=== PATIENT | male | born 1965 | race African-American/Black ===

== ENCOUNTER 2019-09-27 17:05 | Emergency (ER) | payer MEDICAID ==
[~2019-09-27] VITALS: Ht 182.9 cm; Wt 136.1 kg
[2019-09-27 17:19] VITALS: BP 144/92
[2019-09-27] MEDS ORDERED: IBUPROFEN 800 MG TAB PO ONE (19:00)
== END 2019-09-27 20:05 | disposition home or self-care (01) ==
LOC: ER 17:05
DX: N45.1 Epididymitis (principal); N39.0 Urinary tract infection, site not specified; R31.9 Hematuria, unspecified
CPT/HCPCS: 76870; 81002

== ENCOUNTER 2019-09-28 22:46 | Emergency (ER) | payer MEDICAID ==
[~2019-09-28] VITALS: Ht 182.9 cm; Wt 136.1 kg
[2019-09-28 22:57] VITALS: BP 152/84
== END 2019-09-29 00:09 | disposition home or self-care (01) ==
LOC: ER 22:50
DX: N45.1 Epididymitis (principal); Z91.14 Patient's other noncompliance with medication regimen; Z76.0 Encounter for issue of repeat prescription

== ENCOUNTER 2020-01-14 08:42 | Emergency (ER) | payer MEDICAID ==
[~2020-01-14] VITALS: Ht 182.9 cm; Wt 145.1 kg
[2020-01-14 09:29] VITALS: BP 148/94
[2020-01-14] MEDS ORDERED: cefTRIAXone SOD 1,000 MG VL IM ONE (09:45)
[2020-01-14] MEDS ORDERED: IBUPROFEN 800 MG TAB PO ONE (09:45)
[2020-01-14] MEDS ORDERED: LIDOCAINE 1% HCL (LOCAL ANESTH.) INJ 20ML MDV ONE (09:49)
== END 2020-01-14 10:30 | disposition home or self-care (01) ==
LOC: ER 08:42
DX: K04.7 Periapical abscess without sinus (principal)
CPT/HCPCS: 96372; 99283; J0696; J2001

== ENCOUNTER 2021-02-26 14:51 | Inpatient (IN) | payer MEDICAID ==
[~2021-02-26] VITALS: Ht 182.9 cm; Wt 166.9 kg
[2021-02-26] MEDS ORDERED: SODIUM CHLORIDE 0.9% 1,000 ML IV ONE (15:45)
[2021-02-26 16:22] LABS: Basophils # (auto) 0 10 ^3/uL (0-0.2); Eosinophils # (auto) 0 10 ^3/uL (0-0.8); Hematocrit 49.7 % (41.0-53.0); Hemoglobin 16.4 g/dL (13.5-17.5); Lymphocytes # (auto) 1.3 10 ^3/uL (0.4-5.4); Lymphocytes % (auto) 31.2 % (10.0-50.0); Mean Corpuscular Hemoglobin 29.5 pg (28.0-32.0); Mean Corpuscular Hgb Conc. 32.9 g/dL (32.0-36.0); Mean Corpuscular Volume 89.6 fL (80.0-100.0); Monocytes # (auto) 0.2 10 ^3/uL (0-1.3); Monocytes % (auto) 5.5 % (0.0-12.0); Neutrophils # (auto) 2.7 10 ^3/uL (1.6-8.6); Neutrophils % (auto) 62.3 % (37.0-80.0); Nucleated Red Blood Cells % 0.2 %; Red Blood Cells 5.55 10^6/uL (4.5-5.90); Red Cell Distribution Width 15.4 % (11.8-14.3); White Blood Cell 4.3 10^3/uL (4.4-10.8)
[2021-02-26 16:37] LABS: Alanine Aminotransferase 60 U/L (16-61); Albumin 2.9 g/dL (3.4-5.0); Anion Gap 7 (5-15); Aspartate Aminotransferase 55 U/L (15-37); BUN/Creatinine Ratio 11.4; Blood Urea Nitrogen 18 mg/dL (7-18); Calcium 8.2 mg/dL (8.5-10.1); Carbon Dioxide 26 mmol/L (21-32); Chloride 104 mmol/L (98-107); GFR African American 59 mL/min; GFR Non-African American 49 mL/min; Glucose 90 mg/dL (74-106); Magnesium 2.1 mg/dL (1.6-2.6); Potassium 4.4 mmol/L (3.5-5.1); Sodium 137 mmol/L (136-145)
[2021-02-26 16:42] LABS: Alkaline Phosphatase 47 U/L (45-117); Bilirubin, Total 0.4 mg/dL (0.2-1.0); Total Protein 7.8 g/dL (6.4-8.2)
[2021-02-26 17:10] LABS: Urine Bacteria NONE SEEN /hpf (None Seen); Urine Blood Negative /uL (Negative); Urine Specific Gravity 1.029 (1.001-1.035); Urine WBC 1 /hpf (0 - 3)
[2021-02-26 18:12] LABS: INR 1.04 (0.9-1.15); Partial Thromboplastin Time 32.5 sec (23.6-33.0)
[2021-02-26] MEDS ORDERED: ACETAMINOPHEN 500 MG TAB PO ONE (23:15)
[2021-02-27] MEDS ORDERED: AZITHROMYCIN 500MG/ 250ML 250 ML IV ONE (01:00)
[2021-02-27] MEDS ORDERED: DexAMETHasone SOD PHOS 10MG/1ML VIAL INJ IV ONE (01:00)
[2021-02-27] MEDS ORDERED: ONDANSETRON HCL 4 MG/2 ML VIAL IV PRN (02:30)
[2021-02-27] MEDS ORDERED: ALBUTEROL SULF 2.5 MG/0.5ML(0.5%) NEB SOLN NEB PRN (02:30)
[2021-02-27] MEDS ORDERED: ACETAMINOPHEN 325 MG TAB PO PRN (02:30)
[2021-02-27] MEDS ORDERED: TEMAZEPAM 15 MG CAP PO PRN (02:30)
[2021-02-27] MEDS: cefTRIAXone 1GM/50ML D5W 50 ML IV SCH (09:18)
[2021-02-27] MEDS: DexAMETHasone SOD PHOS 10MG/1ML VIAL INJ IV SCH (10:06)
[2021-02-27] MEDS: AZITHROMYCIN 500MG/ 250ML 250 ML IV SCH (10:06)
[2021-02-27] MEDS: PANTOPRAZOLE 40 MG TAB PO SCH (10:07)
[2021-02-27] MEDS: ENOXAPARIN SOD 40 MG/0.4 ML SYRINGE SC SCH (10:07)
[2021-02-27 11:11] VITALS: BP 111/70
[2021-02-27] MEDS ORDERED: REMDESIVIR PER PHARMACY 0 ML IV SCH ×2 (13:15)
[2021-02-27] MEDS: SODIUM CHLORIDE 0.9% 1,000 ML IV SCH ×2 (15:15→23:30)
[2021-02-27] MEDS ORDERED: REMDESIVIR 200 MG in NS 210ml LOADING DOSE ADULT IV ONE (15:30)
[2021-02-27 22:00] VITALS: BP 135/87
[2021-02-28] VITALS: BP 135/87
[2021-02-28 05:00] VITALS: BP 148/85
[2021-02-28 06:19] LABS: Basophils # (auto) 0 10 ^3/uL (0-0.2); Basophils % (auto) 0.3 % (0.0-2.0); Eosinophils # (auto) 0 10 ^3/uL (0-0.8); Hematocrit 45.6 % (41.0-53.0); Hemoglobin 15.3 g/dL (13.5-17.5); Lymphocytes # (auto) 0.9 10 ^3/uL (0.4-5.4); Lymphocytes % (auto) 17.1 % (10.0-50.0); Mean Corpuscular Hemoglobin 30.1 pg (28.0-32.0); Mean Corpuscular Hgb Conc. 33.5 g/dL (32.0-36.0); Mean Corpuscular Volume 89.7 fL (80.0-100.0); Monocytes # (auto) 0.4 10 ^3/uL (0-1.3); Monocytes % (auto) 6.9 % (0.0-12.0); Neutrophils # (auto) 3.9 10 ^3/uL (1.6-8.6); Neutrophils % (auto) 75.7 % (37.0-80.0); Nucleated Red Blood Cells % 0.1 %; Red Blood Cells 5.08 10^6/uL (4.5-5.90); Red Cell Distribution Width 15.3 % (11.8-14.3); White Blood Cell 5.1 10^3/uL (4.4-10.8)
[2021-02-28 06:34] LABS: Albumin 2.6 g/dL (3.4-5.0); Potassium 4.4 mmol/L (3.5-5.1)
[2021-02-28 06:40] LABS: BUN/Creatinine Ratio 18.2; Bilirubin, Total 0.4 mg/dL (0.2-1.0); Total Protein 7.2 g/dL (6.4-8.2)
[2021-02-28 09:00] VITALS: BP 112/68
[2021-02-28] MEDS: SODIUM CHLORIDE 0.9% 1,000 ML IV SCH (09:30)
[2021-02-28] MEDS: cefTRIAXone 1GM/50ML D5W 50 ML IV SCH (09:47)
[2021-02-28] MEDS: PANTOPRAZOLE 40 MG TAB PO SCH (09:47)
[2021-02-28] MEDS: ENOXAPARIN SOD 40 MG/0.4 ML SYRINGE SC SCH ×2 (09:47→21:52)
[2021-02-28] MEDS: DexAMETHasone SOD PHOS 10MG/1ML VIAL INJ IV SCH (09:47)
[2021-02-28] MEDS: AZITHROMYCIN 500MG/ 250ML 250 ML IV SCH (12:37)
[2021-02-28 13:00] VITALS: BP 118/73
[2021-02-28] MEDS: REMDESIVIR 100mg 100 MG in SODIUM CHL 0.9% 230 ML IV SCH (15:18)
[2021-02-28 17:01] VITALS: BP 125/74
[2021-02-28 22:00] VITALS: BP 125/78
[2021-03-01 04:55] LABS: Basophils # (auto) 0 10 ^3/uL (0-0.2); Basophils % (auto) 0.9 % (0.0-2.0); Eosinophils # (auto) 0 10 ^3/uL (0-0.8); Hematocrit 44.1 % (41.0-53.0); Hemoglobin 14.9 g/dL (13.5-17.5); Lymphocytes # (auto) 0.9 10 ^3/uL (0.4-5.4); Lymphocytes % (auto) 17.4 % (10.0-50.0); Mean Corpuscular Hemoglobin 30.4 pg (28.0-32.0); Mean Corpuscular Hgb Conc. 33.9 g/dL (32.0-36.0); Mean Corpuscular Volume 89.8 fL (80.0-100.0); Monocytes # (auto) 0.6 10 ^3/uL (0-1.3); Neutrophils # (auto) 3.6 10 ^3/uL (1.6-8.6); Neutrophils % (auto) 69.7 % (37.0-80.0); Red Blood Cells 4.91 10^6/uL (4.5-5.90); White Blood Cell 5.2 10^3/uL (4.4-10.8)
[2021-03-01 05:00] VITALS: BP 140/77
[2021-03-01 05:14] LABS: Albumin 2.6 g/dL (3.4-5.0); BUN/Creatinine Ratio 21.1; Potassium 4.4 mmol/L (3.5-5.1)
[2021-03-01 05:16] LABS: Bilirubin, Total 0.3 mg/dL (0.2-1.0); Total Protein 7.1 g/dL (6.4-8.2)
[2021-03-01 09:00] VITALS: BP 129/77
[2021-03-01] MEDS: AZITHROMYCIN 500MG/ 250ML 250 ML IV SCH (10:00)
[2021-03-01] MEDS: ENOXAPARIN SOD 40 MG/0.4 ML SYRINGE SC SCH ×2 (10:01→21:55)
[2021-03-01] MEDS: DexAMETHasone SOD PHOS 10MG/1ML VIAL INJ IV SCH (10:01)
[2021-03-01] MEDS: PANTOPRAZOLE 40 MG TAB PO SCH (10:01)
[2021-03-01] MEDS: cefTRIAXone 1GM/50ML D5W 50 ML IV SCH (10:01)
[2021-03-01] MEDS ORDERED: ASCORBIC ACID 500 MG TAB PO ONE (12:15)
[2021-03-01] MEDS ORDERED: CHOLECALCIFEROL (VITD3) 2,000 UNIT CAP/TAB PO ONE (12:15)
[2021-03-01] MEDS ORDERED: ZINC SULFATE 220mg CAP or TAB PO ONE (12:15)
[2021-03-01 13:00] VITALS: BP 120/75
[2021-03-01] MEDS: REMDESIVIR 100mg 100 MG in SODIUM CHL 0.9% 230 ML IV SCH (15:50)
[2021-03-01 16:46] VITALS: BP 119/75
[2021-03-01 22:00] VITALS: BP 133/78
[2021-03-02 05:00] VITALS: BP 131/80
[2021-03-02 07:14] LABS: Potassium 4.3 mmol/L (3.5-5.1)
[2021-03-02 07:25] LABS: Albumin 2.7 g/dL (3.4-5.0); BUN/Creatinine Ratio 19.5; Bilirubin, Total 0.4 mg/dL (0.2-1.0); Calcium 8.4 mg/dL (8.5-10.1); Total Protein 7.1 g/dL (6.4-8.2)
[2021-03-02 08:58] VITALS: BP 125/97
[2021-03-02] MEDS: DexAMETHasone SOD PHOS 10MG/1ML VIAL INJ IV SCH (09:05)
[2021-03-02] MEDS: cefTRIAXone 1GM/50ML D5W 50 ML IV SCH (09:05)
[2021-03-02] MEDS: AZITHROMYCIN 500MG/ 250ML 250 ML IV SCH (09:06)
[2021-03-02] MEDS: ZINC SULFATE 220mg CAP or TAB PO SCH (09:06)
[2021-03-02] MEDS: CHOLECALCIFEROL (VITD3) 2,000 UNIT CAP/TAB PO SCH (09:07)
[2021-03-02] MEDS: PANTOPRAZOLE 40 MG TAB PO SCH (09:07)
[2021-03-02] MEDS: ASCORBIC ACID 1,000 MG TAB PO SCH (09:07)
[2021-03-02] MEDS: ENOXAPARIN SOD 40 MG/0.4 ML SYRINGE SC SCH ×2 (09:09→21:31)
[2021-03-02 13:00] VITALS: BP 127/77
[2021-03-02] MEDS: REMDESIVIR 100mg 100 MG in SODIUM CHL 0.9% 230 ML IV SCH (15:08)
[2021-03-02 17:00] VITALS: BP 123/75
[2021-03-02 21:42] VITALS: BP 127/77
[2021-03-03 04:22] VITALS: BP 130/89
[2021-03-03 06:48] LABS: Potassium 4.1 mmol/L (3.5-5.1)
[2021-03-03 06:58] LABS: Albumin 2.7 g/dL (3.4-5.0); BUN/Creatinine Ratio 17.8; Bilirubin, Total 0.4 mg/dL (0.2-1.0); Calcium 8.3 mg/dL (8.5-10.1); Total Protein 7.1 g/dL (6.4-8.2)
[2021-03-03 07:40] VITALS: BP 127/83
[2021-03-03 09:00] VITALS: BP 127/83
[2021-03-03] MEDS: ENOXAPARIN SOD 40 MG/0.4 ML SYRINGE SC SCH (09:10)
[2021-03-03] MEDS: CHOLECALCIFEROL (VITD3) 2,000 UNIT CAP/TAB PO SCH (09:10)
[2021-03-03] MEDS: DexAMETHasone SOD PHOS 10MG/1ML VIAL INJ IV SCH (09:10)
[2021-03-03] MEDS: ZINC SULFATE 220mg CAP or TAB PO SCH (09:11)
[2021-03-03] MEDS: cefTRIAXone 1GM/50ML D5W 50 ML IV SCH (09:11)
[2021-03-03] MEDS: AZITHROMYCIN 500MG/ 250ML 250 ML IV SCH (09:11)
[2021-03-03] MEDS: ASCORBIC ACID 1,000 MG TAB PO SCH (09:11)
[2021-03-03] MEDS: PANTOPRAZOLE 40 MG TAB PO SCH (09:11)
[2021-03-03] MEDS ORDERED: DEXA4TAB90 PO (10:52)
[2021-03-03] MEDS ORDERED: ASCO10003 PO (10:52)
[2021-03-03] MEDS ORDERED: CHOL1CAP47 PO (10:52)
[2021-03-03] MEDS ORDERED: ALB5IS NEB (10:52)
[2021-03-03 11:45] VITALS: BP 127/83
[2021-03-03] MEDS: REMDESIVIR 100mg 100 MG in SODIUM CHL 0.9% 230 ML IV SCH (15:02)
[2021-03-04] MEDS ORDERED: ALBUAER3 IN (15:27)
== END 2021-03-03 17:18 | disposition home or self-care (01) | DRG 137 ==
LOC: ER 14:51 → OVERFLOW 02-27 02:30 → EAST 02-27 21:57
PROVIDERS: ADMIT Nurse Practitioner; ATTEND Internal Medicine Pulmonary Disease
PROC: XW033E5 Introduction of Remdesivir Anti-infective into Peripheral Vein, Percutaneous Approach, New Technology Group 5 (ICD-10-PCS; principal; 2021-02-27)
DX: U07.1 COVID-19 (principal); J96.01 Acute respiratory failure with hypoxia; J12.82 Pneumonia due to coronavirus disease 2019; E44.0 Moderate protein-calorie malnutrition; N17.9 Acute kidney failure, unspecified; J40 Bronchitis, not specified as acute or chronic; E66.01 Morbid (severe) obesity due to excess calories; Z66 Do not resuscitate; Z68.42 Body mass index [BMI] 45.0-49.9, adult; N18.30 Chronic kidney disease, stage 3 unspecified; R00.1 Bradycardia, unspecified; I70.8 Atherosclerosis of other arteries
CPT/HCPCS: 36415; 71045; 71250; 80053; 81001; 82728; 83735; 83880; 84439; 84443; 84484; 85025; 85379; 85610; 85730; 87040; 87426; 93306; 96365; 96366; 96367; 96368; 96372; 96375; 96376; G0378; J0696; J1100